=== PATIENT | female | born 1995 ===

== ENCOUNTER 2016-05-16 11:53 | Inpatient (IN) | payer MEDICAID, OTHER ==
[2016-05-16 11:57] VITALS: BMI 29.2
[2016-05-16 12:09] VITALS: O2SAT 96
--- NOTE | 2016-05-16 12:33 | ED PDOC ---
Arrival/HPI - General Chief Complaint: Psychiatric Evaluation Time Seen by Provider: 05/16/16 12:21 Historian: Patient, Other ([facility] records) - History of Present Illness Narrative History of Present Illness (Text): 05/16/16 12:22 A 21 year old female transferred from [facility] accepted for psychiatric admission. Patient's medical records from [place] reviewed, patient had a negative chest xray, negative test. Basic labs reviewed and normal EKG sinus tachycardia 106 bpm. On evaluation, patient notes feeling numb of any emotion, but denies any somatic complaints. Time/Duration: Prior to Arrival Symptom Course: Unchanged Quality: Other Context: Other Past Medical History - Provider Review Nursing Documentation Reviewed: Yes - Psychiatric Hx Bipolar Disorder: Yes Hx Substance Use: No Family/Social History - Physician Review Nursing Documentation Reviewed: Yes Family/Social History: No Known Family HX Smoking Status: Former Smoker Hx Alcohol Use: No Hx Substance Use: No Allergies/Home Meds Allergies/Adverse Reactions: Allergies peach Allergy (Verified 05/16/16 12:18) RASH Home Medications: Home Meds Medication Instructions Recorded Confirmed Unobtainable 05/16/16 05/16/16 Review of Systems - Physician Review All systems were reviewed & negative as marked: Yes - Review of Systems Constitutional: absent: Fevers Respiratory: absent: SOB Cardiovascular: absent: Chest Pain Gastrointestinal: absent: Abdominal Pain, Diarrhea, Nausea, Vomiting Genitourinary Female: absent: Dysuria Musculoskeletal: absent: Arthralgias Neurological: absent: Headache, Dizziness, Focal Weakness, Gait Changes, Speech Changes, Facial Droop, Disequilibrium Endocrine: absent: Diaphoresis Hemo/Lymphatic: absent: Adenopathy Psychiatric: Other ("feeling numb") Physical Exam Vital Signs Reviewed: Yes Vital Signs Temp Pulse Resp BP Pulse Ox 05/16/16 12:08 98.6 F 96 H 16 133/84 96 Temperature: Afebrile Blood Pressure: Normal Pulse: Regular Respiratory Rate: Normal Appearance: Positive for: Well-Appearing, Non-Toxic, Comfortable Pain Distress: None Mental Status: Positive for: Alert and Oriented X 3 - Systems Exam Head: Present: Atraumatic, Normocephalic Pupils: Present: PERRL Extroacular Muscles: Present: EOMI Conjunctiva: Present: Normal Mouth: Present: Moist Mucous Membranes Respiratory/Chest: Present: Clear to Auscultation, Good Air Exchange. No: Respiratory Distress, Accessory Muscle Use Cardiovascular: Present: Regular Rate and Rhythm, Normal S1, S2. No: Murmurs Abdomen: Present: Normal Bowel Sounds. No: Tenderness, Distention, Peritoneal Signs Upper Extremity: Present: Normal Inspection. No: Cyanosis, Edema Lower Extremity: Present: Normal Inspection. No: Edema Neurological: Present: GCS=15, CN II-XII Intact, Speech Normal Skin: Present: Warm, Dry, Normal Color. No: Rashes Psychiatric: Present: Alert, Oriented x 3, Normal Insight, Normal Concentration Medical Decision Making ED Course and Treatment: 05/16/16 12:22 Impression: A 21 year old female transferred for psych admission. Patient denies any somatic complaints. She was medically cleared at [facility] and accepted by Dr. Aquino. Old records reviewed. Will transfer to psych - Scribe Statement The provider has reviewed the documentation as recorded by the Scribe Rea Zuniga Provider Scribe Attestation: All medical record entries made by the Scribe were at my direction and personally dictated by me. I have reviewed the chart and agree that the record accurately reflects my personal performance of the history, physical exam, medical decision making, and the department course for this patient. I have also personally directed, reviewed, and agree with the discharge instructions and disposition. Disposition/Present on Arrival - Present on Arrival Any Indicators Present on Arrival: No History of DVT/PE: No History of Uncontrolled Diabetes: No Urinary Catheter: No History of Decub. Ulcer: No History Surgical Site Infection Following: None - Disposition Have Diagnosis and Disposition been Completed?: Yes Diagnosis: Psychosis Disposition: HOSPITALIZED Disposition Time: 12:22 Patient Plan: Admission Condition: FAIR
[2016-05-16] MEDS ORDERED: Magnesium Hydroxide Susp 30 ml UD PO PRN (14:48)
[2016-05-16] MEDS ORDERED: Alum-Mag Hydrox-Simethicone Susp (30 mL) PO PRN (14:48)
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
[2016-05-17 08:22] LABS: ADD MANUAL DIFF? NO; FREE T4 1.23 ng/dL (0.78-2.19)
[2016-05-17 08:27] LABS: CHOLESTEROL 163 mg/dL (130-200)
[2016-05-17 08:36] LABS: THYROID STIMULATING HORMONE 1.02 mIU/mL (0.46-4.68)
[2016-05-17 08:38] LABS: BASO # 0.04 K/mm3 (0.0-2.0); BASO % 0.4 % (0.0-3.0); EOS # 0.1 (0.0-0.7); EOS % 0.9 % (1.5-5.0); GRAN # 4.98 (1.4-6.5); GRAN % 48.7 % (50.0-68.0); LYMPH # 4.3 (1.2-3.4); LYMPH % 41.8 % (22.0-35.0); MEAN CORPUSCULAR HEMOGLOBIN 27.9 pg (25.0-35.0); MEAN CORPUSCULAR HGB CONC 32.9 g/dl (31.0-37.0); MEAN PLATELET VOLUME 10.9 fl (7.0-11.0); MONO # 0.8 (0.1-0.6); MONO % 8.2 % (1.0-6.0); PLATELET COUNT 328 10^3/uL (120.0-450.0); RED CELL DISTRIBUTION WIDTH 13.6 % (11.5-14.5); WHITE BLOOD COUNT 10.2 10^3/ul (4.5-11.0)
[2016-05-17 08:50] LABS: ALB/GLOB RATIO 1.2 (1.1-1.8); ALKALINE PHOSPHATASE 79 U/L (38-133); ALT/SGPT 25 U/L (7-56); AST/SGOT 30 U/L (15-39); BILIRUBIN,TOTAL 0.6 mg/dL (0.2-1.3); BLOOD UREA NITROGEN 17 mg/dL (7-21); CALCIUM 9.7 mg/dL (8.4-10.5); CARBON DIOXIDE 25 mmol/L (21-33); CHLORIDE 104 mmol/L (98-107); GFR AFRICAN-AMERICAN > 60; GLUCOSE,RANDOM 108 mg/dL (70-110); POTASSIUM 3.9 mmol/L (3.6-5.0); SODIUM 142 mmol/L (132-148); TOTAL PROTEIN 8.1 g/dL (5.8-8.3)
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
[2016-05-18] MEDS: buPROPion 150 mg/24 Hours XL Tab PO SCH (15:27)
[2016-05-19] MEDS: buPROPion 150 mg/24 Hours XL Tab PO SCH (08:58)
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
--- NOTE | 2016-05-20 08:46 | PCM.PYCHPN ---
Psychiatric Progress Note - Psychiatric Progress Note Patient seen today, length of contact: 25 min Patient Chief Complaint: "okay" Problems Identified/Issues Discussed: I reviewed assessment and recent notes. Patient was interviewed at bedside. Patient appears calm and a little unkempt during our meeting. She is preoccupied and not oriented to current month though aware of year and location. Patient reports feeling "okay" and denies hopelessness or suicidal thoughts or plan. She isn't hallucinating and doesn't appear to be responding to internal stimuli during our interview. Affect is constricted and a little disengaged though polite and cooperative. She denies any new concerns discomfort or pain. She has been tolerating her medications and there were no behavioral issues overnight Diagnostic Results: Severe depression anxiety, Medication Change: No Medical Record Reviewed: Yes (reports, labs, vitals, notes) Mental Status Examination - Cognitive Function Orientation: Person, Place, Situation, Time Memory: Intact Attention: WNL Concentration: Poor Association: WNL - Mood Mood: Depressed ("okay:) - Affect Affect: Blunted - Speech Speech: Soft - Formal Thought Process Formal Thought Process: Delusions (none elicited today) - Suicidal Ideation Suicidal Ideation: No - Homicidal Ideation Homicidal Ideation: No Goal/Treatment Plan - Goal/Treatment Plan Need for Continued Stay: Severe depression anxiety, Discharge may exacerbated symptoms Progress Toward Problem(s) and Goals/Treatment Plan: * c/w current tx and plan * No new weekend labs * Vitals reviewed and noted below: Selected Entries 05/19/16 05/19/16 05/19/16 06:00 16:27 23:35 Temperature 99.1 F Pulse Rate 106 H 120 H 120 H Respiratory 20 Rate Blood Pressure 125/85 107/70 107/70
[2016-05-20] MEDS: buPROPion 150 mg/24 Hours XL Tab PO SCH (10:12)
--- NOTE | 2016-05-21 08:36 | PCM.PYCHPN ---
Psychiatric Progress Note - Psychiatric Progress Note Patient seen today, length of contact: 25 min Patient Chief Complaint: "okay" Problems Identified/Issues Discussed: I reviewed recent notes and met with patient in the hallway. Patient remains calm and oriented to month, year and location. She is better groomed though still remains preoccupied and oddly related. Staff notes indicate that patient reported she ate soap yesterday and could not give a reason. Today she tells me that she ate a little bit of soap yesterday because she wanted to taste it. Indicate that she spit it out right away because she didn't like the taste. Currently patient reports feeling "okay" and denies hopelessness or suicidal thoughts or plan. She isn't hallucinating and doesn't appear to be responding to internal stimuli during our interview. Affect is constricted and a little disengaged though polite and cooperative. She denies any new concerns discomfort or pain. Slept well this weekend. She has been tolerating her medications and there were no behavioral issues over the weekend. Diagnostic Results: Severe depression anxiety, Medication Change: No Medical Record Reviewed: Yes (reports, labs, vitals, notes) Mental Status Examination - Cognitive Function Orientation: Person, Place, Situation, Time Memory: Intact Attention: WNL Concentration: Poor Association: WNL - Mood Mood: Depressed ("okay:) - Affect Affect: Blunted, Other (oddly related) - Speech Speech: Soft - Formal Thought Process Formal Thought Process: Delusions (none elicited this weekend) - Suicidal Ideation Suicidal Ideation: No - Homicidal Ideation Homicidal Ideation: No Goal/Treatment Plan - Goal/Treatment Plan Need for Continued Stay: Severe depression anxiety, Discharge may exacerbated symptoms Progress Toward Problem(s) and Goals/Treatment Plan: * c/w current tx and plan * No new weekend labs * Vitals reviewed and noted below: Selected Entries 05/21/16 07:27 Temperature 98.0 F Pulse Rate 73 Respiratory 20 Rate Blood Pressure 134/71
[2016-05-21] MEDS: buPROPion 150 mg/24 Hours XL Tab PO SCH (08:38)
[2016-05-22 07:41] VITALS: TEMP 97.9
[2016-05-22] MEDS: buPROPion 150 mg/24 Hours XL Tab PO SCH (07:57)
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
[2016-05-23 06:56] VITALS: BP 112/80; PULSE 96; RESP 18
[2016-05-23] MEDS: buPROPion 150 mg/24 Hours XL Tab PO SCH (08:31)
== END 2016-05-23 14:13 | disposition home or self-care (01) | DRG 881 ==
LOC: ED 11:53 → ERH 12:31 → PSYC 13:07
PROVIDERS: ADMIT Psychiatry & Neurology Addiction Medicine; ATTEND Psychiatry & Neurology Addiction Medicine
DX: F32.9 Major depressive disorder, single episode, unspecified (principal); F41.8 Other specified anxiety disorders; M54.9 Dorsalgia, unspecified; R73.02 Impaired glucose tolerance (oral)